=== PATIENT | female | born 1965 | race Two or more races ===

== ENCOUNTER 2019-05-03 08:32 | Emergency (ER) | payer OTHER ==
[~2019-05-03] VITALS: Ht 162.6 cm; Wt 77.1 kg
--- NOTE | 2019-05-03 08:38 | NUR ---
NORAH RINCON 79 FROM HOME FOR SYNCOPE, PER EMS, "MOM HEARD A THUD AND FOUND HER ON THE FLOOR INCONTINENT", TO ER BED 10, HOOKED TO UTILITIES MANAGER, PATIENT NOTED TACHYCARDIC, CHANGED TO HOSP GOWN, PROVIDED W WARM BLABKET, AOx1, CONFUSED TO WHERE SHE IS AND WHAT HAPPENED, DOES NOT RECALL ANYTHING, LAST THING PATIENT REMEMBERED IS GOING TO SLEEP, BREATHING EVEN AND UNLABORED. NOTED W PALE SKIN, DR MARCELO AT BEDSIDE
[2019-05-03] MEDS ORDERED: ONDANSETRON HCL/PF 4 MG/2 ML VIAL IVP ONE (09:00)
[2019-05-03] MEDS ORDERED: LEVETIRACETAM (500MG) 1,000 MG in IV NS 0.9% 100 ML IV SCH (09:00)
[2019-05-03] MEDS ORDERED: IV NS 0.9% 1,000 ML BAG IV ONE ×2 (09:00→10:00)
[2019-05-03] MEDS ORDERED: ONDANSETRON HCL/PF 4 MG/2 ML VIAL ONE (09:03)
--- NOTE | 2019-05-03 09:20 | NUR ---
PATIENT PLACED ON MISAEL HUGGER.
[2019-05-03 09:31] LABS: BASOPHILS # (AUTO) 0.1 /CMM (0.0-0.2); BASOPHILS % (AUTO) 0.6 % (0.0-2.0); EOSINOPHILS % (AUTO) 0.5 % (0.0-6.0); LYMPHOCYTES # (AUTO) 1.5 /CMM (0.8-4.8); LYMPHOCYTES % (AUTO) 8.5 % (20.0-44.0); MEAN CORPUSCULAR HGB CONC 30 g/dl (31.0-36.0); MEAN CORPUSCULAR VOLUME 71 fL (82-100); MONOCYTES % (AUTO) 5.5 % (2.0-12.0); NEUTROPHILS # (AUTO) 15.5 /CMM (1.8-8.9); NEUTROPHILS % (AUTO) 84.9 % (43.0-81.0); PLATELET COUNT (AUTO) 657 /CMM (150-450); RED BLOOD CELL COUNT(AUTO) 2.68 MIL/uL (4.0-5.2); WHITE BLOOD COUNT (AUTO) 18.3 K/uL (4.3-11.0)
[2019-05-03 09:38] LABS: HEMATOCRIT 19 % (33-45); HEMOGLOBIN 5.7 g/dL (11.5-14.8)
[2019-05-03 09:40] LABS: CALCIUM, SERUM 8.3 mg/dL (8.5-10.1); CARBON DIOXIDE 25 mmol/L (21-32); CHLORIDE 104 mmol/L (98-107); GLUCOSE 197 mg/dL (74-106); POTASSIUM 3.9 mmol/L (3.5-5.1); SODIUM SERUM 141 mmol/L (136-145); UREA NITROGEN, BLOOD 12 mg/dL (7-18)
[2019-05-03 09:44] LABS: CHOLESTEROL 92 mg/dL (<200); HDL CHOLESTEROL 25 mg/dL (40-60); LDL 67 mg/dL (0-99); TRIGLYCERIDES 46 mg/dL (30-150)
--- NOTE | 2019-05-03 09:44 | NUR ---
URINE SAMPLE SENT TO LAB
[2019-05-03 09:45] LABS: ALANINE AMINOTRANSFERASE 14 U/L (12-78); ALKALINE PHOSPHATASE 52 U/L (46-116); ASPARTATE AMINOTRANSFERASE 13 U/L (15-37); BILIRUBIN,DIRECT 0.2 mg/dL (0.0-0.2); BILIRUBIN,TOTAL 0.6 mg/dL (0.2-1.0); TOTAL PROTEIN, SERUM 5.7 g/dL (6.4-8.2)
--- NOTE | 2019-05-03 09:46 | NUR ---
WHEELED OUT VIA [facility]NEY FOR CT SCAN
[2019-05-03 09:56] LABS: APPEARANCE,URINE Cloudy (CLEAR); BILIRUBIN,URINE SMALL (NEGATIVE); BLOOD, URINE Trace-lysed Ery/uL (NEGATIVE); COLOR,URINE Dark (YELLOW); KETONES,URINE Trace (NEGATIVE); LEUKOCYTE ESTERASE ,URINE Negative (NEGATIVE); NITRITE, URINE Negative (NEGATIVE); PROTEIN,URINE >=300 mg/dl (NEGATIVE); UGLUCOSE 100 MG/DL mg/dL (NEGATIVE)
[2019-05-03] MEDS ORDERED: PIPERACILLIN /TAZOBACTAM 3.375 G in IV D5W 50 ML IV ONE (10:00)
--- NOTE | 2019-05-03 10:04 | NUR ---
CALLED [facility] FOR REC[facility]. THEY WILL FAX OVER INFO ON PT. WHEN DOCTOR IS READY WE CALL BACK TO PRESENT.
[2019-05-03] MEDS ORDERED: PIPERACILLIN /TAZOBACTAM 3.375 G VIAL IV ONE (10:06)
[2019-05-03 10:10] LABS: BAND % (MANUAL) 12 % (0.0-5.0); LYMPHOCYTES % (MANUAL) 6 % (16-48); MONOCYTES % (MANUAL) 6 % (0-11.0); NEUTROPHILS % (MANUAL) 76 (42-76)
--- NOTE | 2019-05-03 10:30 | NUR ---
CALLED [facility] TO PRESENT. WILL CALL BACK WITH DOCTOR.
--- NOTE | 2019-05-03 10:31 | NUR ---
[facility]ALL DOCTOR CALLED.
--- NOTE | 2019-05-03 10:42 | NUR ---
MISAEL LAWS STILL APPLIED ON PATIENT.
--- NOTE | 2019-05-03 10:45 | NUR ---
BLOOD PRODUCT VERIFIED W TIFFANIE WASHBURN RN, ALSO VERIFIED W PATIENT INFORMATION.
--- NOTE | 2019-05-03 10:47 | NUR ---
PRE BLOOD TRANSFUSION VS TAKE AND RECORDED. VSS. STARTED BLOOD TRANSFUSION. CLOSELY MONITORED FOR ADVERSE REACTION
[2019-05-03 10:50] LABS: BACTERIA,URINE Few /HPF (None Seen); SQUAMOUS EPITHELIAL CELL,UR Few /HPF (None Seen); WBC,URINE 0-2 /HPF (0-3)
[2019-05-03 10:51] LABS: COARSE GRANULAR CASTS,URINE Few /LPF (None Seen)
--- NOTE | 2019-05-03 11:05 | NUR ---
NO ADVERSE REACTION NOTED. WILL CONTINUE TO MONITOR
--- NOTE | 2019-05-03 11:18 | NUR ---
BLOOD PRODUCT VERIFIED W TIFFANIE WASHBURN RN, ALSO VERIFIED W PATIENT INFORMATION.
--- NOTE | 2019-05-03 11:20 | NUR ---
SECOND BAG OF PRBC STARTED. WILL CLOSELY MONITOR PATIENT FOR ADVERSE REACTION
--- NOTE | 2019-05-03 11:42 | NUR ---
2nd bag of prbc done, no noted adverse reaction
--- NOTE | 2019-05-03 11:45 | NUR ---
[facility] CALLED BACK. PT GOING TO [facility] ER. ACCEPTING IS DR. VEGA. OB IS DR. RECINOS. NUMBER FOR REPORT. [phone]. 1200 ETA FOR [facility].
[2019-05-03 12:08] VITALS: BP 95/67
--- NOTE | 2019-05-03 12:14 | NUR ---
REPORT GIVEN TO [facility] OF [facility] DEPT.
--- NOTE | 2019-05-03 12:28 | NUR ---
Patient Tranfers to outside Facility. Picked up by [facility] CCT Unit [address] with Dago ELLIS. Physician: DR VEGA/OB DR RECINOS Location: [facility] ER DEPT
== END 2019-05-03 12:30 | disposition short-term general hospital (02) ==
LOC: ER 08:38
DX: R58 Hemorrhage, not elsewhere classified (principal); R19.00 Intra-abdominal and pelvic swelling, mass and lump, unspecified site; R55 Syncope and collapse; D62 Acute posthemorrhagic anemia; D72.829 Elevated white blood cell count, unspecified; R79.89 Other specified abnormal findings of blood chemistry; R00.0 Tachycardia, unspecified
CPT/HCPCS: 36415; 70450; 71045; 74176; 80048; 80061; 80076; 80305; 80307; 81001; 83605; 84484; 85025; 85730; 86850; 86921 ×3; 87040 ×2; 93005; 96361; 96365; 96367; 96375; 99285; J1953; J2405; J2543; J7030 ×3; J7050; P9016 ×2; 81000-TC; G0480; J7060